=== PATIENT | male | born 1940 | race African-American/Black ===

== ENCOUNTER → 2019-07-17 | Outpatient (CLI) | payer MEDICARE ==
[~2019-07-17] MED LIST: ATOR20TA58 PO; DOCU100C28 PO; FERR325T14 PO; GABA300C18 PO; GLIP1TAB4 PO; GLIP1TAB5 PO; LOSA100T14 PO; METF500T16 PO; VALS1TAB22 PO
== END | disposition home or self-care (01) ==
LOC: LAB 13:02
PROVIDERS: ATTEND Internal Medicine Cardiovascular Disease
DX: Z01.818 Encounter for other preprocedural examination (principal); Z11.59 Encounter for screening for other viral diseases
CPT/HCPCS: C9803-CS; U0003-CS

== ENCOUNTER 2019-07-22 08:18 | Outpatient (CLI) | payer MEDICARE ==
[2019-07-22] VITALS (7 sets, daily range): BP systolic 135–171; BP diastolic 68–82
[~2019-07-22] VITALS: Ht 170.2 cm; Wt 81.6 kg
[~2019-07-22 08:18] MED LIST changes: -ATOR20TA58 PO; -DOCU100C28 PO; -FERR325T14 PO; -GLIP1TAB4 PO; -LOSA100T14 PO
[2019-07-22] MEDS ORDERED: BACITRACIN 50,000 UNIT in IV NORMAL SALINE 250ML 250 ML IRR ONE (08:45)
[2019-07-22] MEDS ORDERED: LOSA100T14 PO (08:48)
[2019-07-22] MEDS ORDERED: ATOR20TA58 PO (08:48)
[2019-07-22] MEDS ORDERED: DOCU100C28 PO (08:48)
[2019-07-22] MEDS ORDERED: GLIP1TAB4 PO (08:48)
[2019-07-22] MEDS ORDERED: FERR325T14 PO (08:48)
[2019-07-22 09:08] LABS: HEMATOCRIT 38.2 % (39.0-53.0); HEMOGLOBIN 12.8 g/dL (13.0-17.5); RED BLOOD COUNT 3.98 x10^6/uL (4.30-5.70); RED CELL DISTRIBUTION WIDTH 13.7 % (11.5-14.5); WHITE BLOOD COUNT 3.7 x10^3/uL (4.0-11.0)
[2019-07-22 09:21] LABS: PROTHROMBIN TIME PATIENT 14.3 SEC (11.7-14.0)
[2019-07-22 09:24] LABS: CALCIUM 8.5 mg/dL (8.5-10.1); CREATININE 1.2 mg/dL (0.7-1.3); GFR 70.9; POTASSIUM 3.8 mmol/L (3.5-5.1)
[2019-07-22] MEDS ORDERED: fentaNYL PF VIAL 100 MCG/2 ML VIAL ONE (09:53)
[2019-07-22] MEDS ORDERED: MIDAZOLAM HCL/PF 2 MG/2 ML VIAL. ONE (09:53)
[2019-07-22] MEDS ORDERED: fentaNYL PF VIAL 100 MCG/2 ML VIAL IV ONE (10:00)
[2019-07-22] MEDS ORDERED: LIDOCAINE 2%/EPI 1:100,000 20 ML VIAL. IJ ONE (10:00)
[2019-07-22] MEDS ORDERED: MIDAZOLAM HCL/PF 2 MG/2 ML VIAL. IV ONE (10:00)
[2019-07-22] MEDS ORDERED: LIDOCAINE 2%/EPI 1:100,000 20 ML VIAL. ONE (10:04)
--- NOTE | 2019-07-22 12:01 | CARD ---
MR#: [id number] Date of Study: 07/22/2019 Ordering Physician: ROSIO OLIVAREZ, Referring Physician: ROSIO OLIVAREZ, Tech: APPROVED REPORT PROCEDURES Medtronic dual-chamber permanent pacemaker generator change Moderate Sedation: 50 Minutes Dose: 5.6 Gycm2 Fluoro Time: 0.01 Minutes INDICATIONS Sick sinus syndrome s/p permanent pacemaker implantation presenting with battery depletion PROCEDURE After explaining the risks, benefits, and alternative options, informed consent was obtained from the patient. The patient was brought to the cardiac catheterization lab and the left chest and shoulder were prepp ed and draped in a sterile manner. 30 cc of 2% lidocaine was infiltrated into the skin and subcutaneous tissues for local anesthesia. A n incision was made over the previous scar and using blunt dissection and cautery the pocket was open ed, the capsule exposed and opened and the previously placed generator removed from the pocket. The leads were detached, interrogated and found to be functioning well and we attached to a new Medtronic dual-chamber permanent pacemaker generator model [id number], serial number [id number]. This was placed in the pocket that was subsequently closed in 3 layers. Hemostasis was secured. The right ventricular lead showed a sensing amplitude of 6.8 mV, impedance of 401 ohms and the thresh old of 0.7 V. The right atrial lead showed a sensing amplitude of 2.6 mV, impedance of 389 ohms and a threshold of 1.5 V. Patient tolerated the procedure well. There were no immediate complications CONCLUSION Successful Medtronic dual-chamber permanent pacemaker generator change for battery depletion. Signed by : Rosio Olivarez, Electronically Approved : 07/22/2019 12:01:14
--- NOTE | 2019-07-22 12:20 | NUR ---
Nursing- With last site check, swelling noted around incision, no bleeding or pain. MD notified. Dressing reinforced with pressure dressing to be worn until tomorrow AM. Pt educated and voiced understanding. ARIK RN
--- NOTE | 2019-07-22 12:50 | NUR ---
Discharge Note: OXANA HOANG Discharge instructions and discharge home medications reviewed with Patient and a copy given. All questions have been answered and understanding verbalized. Dressing site remains clean and dry, pressure dressing in place. Pt given verbal and written instructions about care of dressings, pt marti/nel Graham given bag of prescriptions bottles The following instructions and handouts were given: sedation, incision site care, and pacemaker information packet. Discontinued lines and drains: Peripheral IV intact. Patient discharged to Home or Self Care with Family Member via Wheelchair ARIK RN Addendum: 07/22/19 at 1311 by GROVER HUGHES RN Amended: Links added.
== END 2019-07-22 12:50 ==
LOC: CCL 08:18
PROVIDERS: ATTEND Internal Medicine Cardiovascular Disease
DX: Z45.010 Encounter for checking and testing of cardiac pacemaker pulse generator [battery] (principal); I49.5 Sick sinus syndrome
CPT/HCPCS: 33228; 36415; 80048; 85027; 85610; C1785; J0696; J2250; J3010; J3490; J7050; 33213; 99152; 99153; J7030